=== PATIENT | female | born 1995 | race Hispanic/Latino ===

== ENCOUNTER 2021-08-30 18:51 | Emergency (ER) | payer SELFPAY ==
[~2021-08-30] VITALS: Ht 157.5 cm; Wt 62.6 kg
[2021-08-30 18:51] VITALS: BP 116/71
== END 2021-08-30 19:47 | disposition home or self-care (01) ==
LOC: EDH 18:51
DX: T74.21XA Adult sexual abuse, confirmed, initial encounter (principal); X58.XXXA Exposure to other specified factors, initial encounter